=== PATIENT | male | born 1975 | race Caucasian/White ===

== ENCOUNTER 2018-11-24 11:35 | Observation (INO) ==
--- NOTE | 2018-11-24 11:52 | PDOC ---
General Adult HPI - General Chief Complaint: General Medical Stated Complaint: abnormal labs Date Seen by Provider: 11/24/18 Time Seen by Provider: 11:43 Source: POSITIVE: Patient Exam Limitations: POSITIVE: No limitations Nurse's Notes Reviewed & Considered: Yes - Record Incomplete - History of Present Illness Initial Comment: 43 yo male presents to ED with abnormal hemoglobin and hematocrit from outpatient [facility]. Patient states he had a lot of bloody stool about 3 weeks ago but has not noted any bloody stool at this time. Denies abdominal pain. Denies N/V/D/C. Denies urinary complaints. States he has felt lightheaded and short of breath over the past couple of weeks. He denies blood in his urine. Denies R/C/EA/ST. Have you received a tetanus shot in the past 10 years?: No Duration: >1 week Severity: Moderate Context: DENIES: Recent Trauma, Recent Surgery Associated Symptoms: Patient reports increased fatigue and shortness of breath with activity. History of bloody BMs 3 weeks ago but not having any this week. Similar Symptoms Previously: No - Patient Home Medications Home Medications: Home Medications NK [No Home Medications Reported] 04/17/16 - Patient Allergies Allergies/Adverse Reactions: Allergies Allergy/AdvReac Type Severity Reaction Status Date / Time No Known Allergies Allergy Verified 11/24/18 11:42 Past Medical History - heen HEENT History: Denies History Cardiovascular History: Other (please comment) (Heart murmur) Additional Cardiovasular History: HEART MURMUR Respiratory History: Denies History Gastrointestinal History: Denies History Genitourinary History: Denies History Endocrine History: Denies History Musculoskeletal History: Denies History Prosthesis or Implant: No Neurological History: Denies History Blood Disorders: Denies History Psychiatric History: Denies History History of Sexually Transmitted Diseases: No Cancer History: Denies History History of MDRO: No History of Other Communicable Diseases: No History of Exposure to Communicable Disease: No Alcohol Use: None In the Past 12 Months, Have Used or Abuse Any Substance: None Previous Surgical History: Yes Type / Date of Surgery: Tonsillectomy; hernia repair Significant Family History: No pertinent family hx ROS - Limitations ROS Limitations: No Limitations Constitution: REPORTS: Weakness (increased fatigue with generalized weakness) Cardiovascular: REPORTS: Denies Cardiac Symptoms Respiratory: REPORTS: Shortness Of Breath. DENIES: Cough Non Productive, Cough Productive, Hurts To Breathe, Wheezing Neurological: REPORTS: Headache Gastrointestinal: REPORTS: Bloody Stools (had bloody stools 3 weeks ago, now stools normal). DENIES: Abdominal Pain, Nausea Endocrine: REPORTS: Fatigue Musculoskeletal: REPORTS: Denies MS Symptoms Genitourinary: REPORTS: Denies Symptoms Eyes: REPORTS: Denies Symptoms ENT: REPORTS: Denies Symptoms Skin: REPORTS: Denies Skin Symptoms Lympathic: REPORTS: Denies Lympathic Symptoms Immunologic: POSITIVE: Denies Symptoms Psychiatric: POSITIVE: Denies Psych Symptoms General Adult Exam - General Appearance General Appearance: POSITIVE: Alert, Cooperative, No Acute Distress, No Evidence of Trauma - HEENT HEENT: POSITIVE: Head Inspection Nml, Eyes Inspection Nml, Nose Inspection Nml, Pharynx Inspect. Nml, PERRL, EOMI - Pupils Pupil Size: 4 mm: Bilateral - Neck Neck: POSITIVE: Normal Inspection. NEGATIVE: Lymphadenopathy, Stiff Neck - Respiratory Respiratory: POSITIVE: No Respiratory Distress, Breath Sounds Normal, Chest Non- Tender - Cardiovascular Cardiovascular: POSITIVE: Regular Rate & Rhythm, No Murmur, PMI Normal Peripheral Pulses: Radial (R): 2+, Radial (L): 2+ - Abdomen Abdomen: Soft: (All Quadrants), Normal Bowel Sounds: (All Quadrants), Denies Tenderness: (All Quadrants), No Splenomegaly: (All Quadrants), No Hepatomegaly: (All Quadrants), No Guarding: (All Quadrants), No Rebound: (All Quadrants), No Palpable Pulse: (All Quadrants), No Palpabale Mass: (All Quadrants), No Distention: (All Quadrants) - Rectal Rectal: POSITIVE: Non Tender, Normal Rectal Tone, Heme Negative Stool - Back Back: POSITIVE: Normal Inspection. 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 patient had outpatient CBC which showed hgb of 5. Will check PT/INR. Will type and screen and crossmatch for 2 units PRBC. Will admit for transfusion. Discussed case with hospitalist, Dr. Truong, who accepted the patient for admission. Discussed plan with patient and he expressed understanding. Patient will likely need colonscopy either during admit or in followup. Antibiotics Given: No Patient Care Time - Estimated PCT Patient Care Time (In Minutes): 35 Vital Signs - Recent Vital Signs Vital Signs: Vital Signs (Last 8 hours) Temp Pulse Resp BP Pulse Ox 11/24/18 11:43 98 F 94 18 150/80 98 - VS Reviewed Vital Signs Reviewed: Yes Discharge Clinical Impression: Fatigue, Anemia Discharge Disposition: Admit to Observation Condition: Fair Patient Problem(s) Reviewed: Yes Follow Up With: NONE,NONE [Primary Care Provider] - Care Transferred To: Dr. Truong Date Decision to Admit to Inpatient: 11/24/18 Time Decision to Admit to Inpatient: 12:03
[2018-11-24] MEDS ORDERED: Sodium Chloride 0.9% 500 ML PRIMARY IV ONE ×2 (11:54→21:18)
--- NOTE | 2018-11-24 14:13 | PDOC ---
HPI - History of Present Illness Date of Service: 12/01/18 Time of Service: 14:15 Chief Complaint: Shortness of breath and abnormal lab test History of Present Illness: This is a 43 years old male with no significant past medical history who was sent to the hospital because of abnormal lab tests. He Did say about to 3 weeks ago he had blood with his stool and he described as fresh blood there was no pain. This lasted for a day or 2 and then resolved by itself. Since then he's been having some shortness of breath. Shortness of breath is exertional. Did have some lightheadedness but he said that when he had the bleeding. He had a blood test done today and he was advised to go to the ER because his hemoglobin was low. His HB was 5.5 by started transfusing him in the ER and he was admitted. Currently he is denying symptoms. He said he had a normal bowel movement yesterday. He denies NSAID usage. Past Medical History Tobacco Use: Former Smoker In the Past 12 Months, Have Used or Abuse Any of the Following Substance: None Medication / Allergies Home Medications: Home Medications Medication Instructions Recorded Confirmed NK [No Home Medications Reported] 04/17/16 11/24/18 Allergies/Adverse Reactions: Allergies Allergy/AdvReac Type Severity Reaction Status Date / Time No Known Allergies Allergy Verified 11/24/18 11:42 Review of Systems - Review of Systems All Systems: Reviewed & No Additional Complaints Except as Stated Exam - Vitals Vital Signs: Vital Signs Temperature 98.5 F Temperature Source Temporal Artery Scan Pulse Rate [Pulse Oximeter] 94 Pulse Rate 78 Respiratory Rate 16 Blood Pressure [Left Arm] 150/80 Blood Pressure 128/82 Pulse Ox 97 Oxygen Delivery Method Room Air Height 6 ft Weight 200 lb - General General Appearance: No Acute Distress - Head Head Exam: Normal Inspection - Eye Eye Exam: POSITIVE: Normal Appearance - ENT ENT Exam: POSITIVE: Normal Exam - Neck Neck Exam: Normal Inspection - Respiratory Respiratory Exam: POSITIVE: Clear to Auscultation - Bilaterally - Cardiovascular Cardiovascular Exam: POSITIVE: RRR - GI/Abdominal GI/Abdominal Exam: POSITIVE: Normal Bowel Sounds, Non Tender, Non Distended, Soft, No Organomegaly - Rectal Rectal Exam: POSITIVE: Deferred - External Exam: POSITIVE: Deferred - Extremities Extremities Exam: POSITIVE: Normal Inspection - Back Back Exam: POSITIVE: Normal Inspection - Neurological Neurological Exam: POSITIVE: Alert, Oriented x 3, CN II-XII Intact, No Facial Droop, Speech Intact / Clear, Moves All Extremities Equally - Psychiatric Psychiatric Exam: POSITIVE: Normal Affect - Integumentary Integumentary Exam: POSITIVE: Normal Color Assessment and Plan - Patient Problems (1) Anemia Current Visit: Yes Status: Acute Comment: Looks iron deficiency anemia, he'll get 2 units of blood and then repeat his counts. May give him more. I did speak with Dr. Edmonds he will see him as an outpatient. Will put him on protonix The patient is currently not bleeding. There is no pain. He is hemodynamically stable. Code(s): D64.9 - Anemia, unspecified
[2018-11-24] MEDS ORDERED: ONDANSETRON 4 MG/2 ML VIAL IVP PRN (14:19)
[2018-11-24] MEDS ORDERED: ACETAMINOPHEN 325 MG TABLET PO PRN (14:19)
[2018-11-24] MEDS ORDERED: LIDOCAINE W/ SODIUM BICARB 0.5 ML SYR SUBD PRN (14:19)
[2018-11-24] MEDS ORDERED: DOCUSATE 100 MG CAPSULE PO PRN (14:19)
[2018-11-24] MEDS ORDERED: CALCIUM CARBONATE 500 MG (TUMS) CHEWABLE TABLET PO PRN (14:19)
[2018-11-24] MEDS ORDERED: PANTOPRAZOLE IV 40 MG VIAL IVP SCH (14:30)
[2018-11-24 21:01] LABS: Hematocrit [HCT] 22.8 % (42.0-52.0)
[2018-11-25 04:47] VITALS: O2SAT 95
[2018-11-25 04:56] LABS: BASOPHILS # (AUTO) 0.03 10*3/UL; BASOPHILS % (AUTO) 0.7 % (0-1); EOSINOPHILS # (AUTO) 0.15 10*3/UL; EOSINOPHILS % (AUTO) 3.3 % (0-8); Hematocrit [HCT] 25.6 % (42.0-52.0); Hemoglobin [HGB] 7.8 g/dL (14.0-18.0); LYMPHOCYTES # (AUTO) 1.92 10*3/uL; MEAN CORPUSCULAR HEMOGLOBIN 22.7 PG (27-31); MEAN CORPUSCULAR HGB CONC 30.5 g/dL (33-37); MEAN CORPUSCULAR VOLUME 74.4 FL (80-90); MONOCYTES # (AUTO) 0.39 10*3/UL (0.3-0.8); MONOCYTES % (AUTO) 8.6 % (5-15); NEUTROPHILS # (AUTO) 2.02 10*3/UL; NEUTROPHILS % (AUTO) 44.7 % (50-80); RED BLOOD COUNT 3.44 10^6/uL (4.70-6.10)
[2018-11-25 05:17] LABS: BLOOD UREA NITROGEN 12 mg/dL (7-22)
[2018-11-25 06:24] LABS: PLATELET MORPHOLOGY COMMENT NORMAL MORPHOLOGY (NORM); WBC MORPHOLOGY COMMENT NORMAL MORPHOLOGY (NORM)
[2018-11-25 06:25] LABS: RBC MORPHOLOGY COMMENT SEE COMMENTS (NORM)
--- NOTE | 2018-11-25 07:06 | DCSUMMARY ---
Hospitalization Summary Admit Date: 11/24/2018 Discharge Date: 11/25/18 Hospital Course: Discharge diagnoses 1. Iron deficiency anemia 2. History of GI bleed recently Hospital course This is a 43 years old male with past medical history who was told to go to the hospital because of abnormal lab test. He Did say about 3 weeks prior to admission he had blood with the stool and he described it as fresh blood there was no abdominal pain. This lasted for a day or 2 and then resolved by itself. Since then he's been having some shortness of breath. Shortness of breath is exertional. He did report some lightheadedness but he said that when he had the bleeding. He had a blood test done on the day of admission and his hemoglobin was 5.5 and was sent to the ER. They started transfusing him with a unit and was admitted. There was no more bleeding he did have a bowel movement the day before admission and there was no blood. There was no history of NSAID usage. There was no abdominal pain or epigastric pain or reflux. His exam was unremarkable there is no evidence of hemorrhoid externally. We gave him a total of 3 units of blood his hemoglobin post transfusion was 7.8. He was asymptomatic. I did speak with Dr. Edmonds who said he will see him as an outpatient. The patient was hemodynamically stable. We Discharge him home on iron pills and multivitamin in addition to Protonix. Discharge instruction Diet regular Activity as tolerated Medications Current Medication(s) Medication Instructions Recorded Confirmed Type Ferrous Sulfate [Iron] 325 mg PO DAILY #30 tab 11/25/18 Rx Multivit with Iron,Minerals 1 ea PO DAILY #30 tab.chew 11/25/18 Rx [Multivitamins with Iron] Pantoprazole Sodium [Protonix] 40 mg PO DAILY #30 tab 11/25/18 Rx Follow-up with Dr. Edmonds on December 06 Condition at discharge was stable for discharge Exam - Vitals Vital Signs: Vital Signs Temperature 98.4 F Temperature Source Oral Pulse Rate [Pulse Oximeter] 59 Pulse Rate 56 Respiratory Rate 18 Blood Pressure [Right Arm] 130/61 Blood Pressure [Left Arm] 150/80 Blood Pressure 121/55 Pulse Ox 95 Oxygen Flow Rate 3.5 Oxygen Delivery Method Room Air Height 6 ft Weight 210 lb 6.4 oz - General General Appearance: No Acute Distress, Cooperative - Head Head Exam: Normal Inspection - Eye Eye Exam: POSITIVE: Normal Appearance - ENT ENT Exam: POSITIVE: Normal Exam - Neck Neck Exam: Normal Inspection - Respiratory Respiratory Exam: POSITIVE: Clear to Auscultation - Bilaterally - Cardiovascular Cardiovascular Exam: POSITIVE: RRR - GI/Abdominal GI/Abdominal Exam: POSITIVE: Normal Bowel Sounds, Non Tender, Non Distended, Soft, No Organomegaly - Rectal Rectal Exam: POSITIVE: Normal Inspection - External Exam: POSITIVE: Deferred - Extremities Extremities Exam: POSITIVE: Normal Inspection - Back Back Exam: POSITIVE: Normal Inspection - Neurological Neurological Exam: POSITIVE: Alert, Oriented x 3, CN II-XII Intact, No Facial Droop, Speech Intact / Clear, Moves All Extremities Equally - Psychiatric Psychiatric Exam: POSITIVE: Normal Affect Patient Problems - Patient Problem List (1) Anemia Status: Acute Code(s): D64.9 - Anemia, unspecified Category: Medical
[2018-11-25 07:39] VITALS: BP 133/81; RESP 14; TEMP 98.6
== END 2018-11-25 08:12 | disposition home or self-care (01) ==
LOC: ER 11:35 → MED/SURG 11:35
PROVIDERS: ADMIT Internal Medicine; ATTEND Internal Medicine